=== PATIENT | female | born 1950 | race Caucasian/White ===

== ENCOUNTER → 2018-04-22 | Outpatient (CLI) | payer OTHER ==
[~2018-04-22] MED LIST: Augmentin 875-1 EACH PO; CARB200ER PO; CEPH500 PO
== END | disposition home or self-care (01) ==
LOC: LAB SHORT 11:07 → LAB EV 11:07
DX: R50.9 Fever, unspecified (principal)
CPT/HCPCS: 87070

== ENCOUNTER → 2018-06-10 | Outpatient (CLI) | payer OTHER ==
[2018-06-10 11:58] LABS: Bilirubin, Urine Neg (Neg); Blood, Urine Neg (Neg); Glucose Qualitative, Urine Neg (Neg); Ketones, Urine Neg (Neg); Leukocyte Esterase, Urine Neg (Neg); Nitrite, Urine Neg (Neg); Protein, Urine Neg (Neg); Urobilinogen, Urine NORM (Normal)
[2018-06-10 12:15] LABS: Appearance, Urine Clear (Clear); Color, Urine Yellow (P-Yellow)
== END ==
LOC: LAB EV 05:30
PROVIDERS: Internal Medicine
DX: R82.99 Other abnormal findings in urine (principal)
CPT/HCPCS: 81003

== ENCOUNTER 2024-03-06 13:19 | Emergency (ER) | payer OTHER ==
[~2024-03-06] VITALS: Ht 154.9 cm; Wt 62.6 kg
[~2024-03-06 13:19] MED LIST changes: +VITAMIN D-32000 UNIT PO
[2024-03-06 13:38] VITALS: BP 169/72
[2024-03-06] MEDS ORDERED: Erythromycin 0.5% Opth Oint 1 gm LEFTEYE ONE (14:40)
== END 2024-03-06 14:45 | disposition home or self-care (01) ==
LOC: ER 13:19
DX: T85.898A Other specified complication of other internal prosthetic devices, implants and grafts, initial encounter (principal); Z91.041 Radiographic dye allergy status; Z88.8 Allergy status to other drugs, medicaments and biological substances; Z88.5 Allergy status to narcotic agent; Z79.899 Other long term (current) drug therapy
CPT/HCPCS: 99282; A9270